=== PATIENT | female | born 1995 | race Hispanic/Latino ===

== ENCOUNTER 2021-03-11 11:39 | Outpatient (CLI) | payer MEDICAID ==
[2021-03-12 00:36] LABS: SARS-CoV-2 PCR by NAA Not Detected (NotDetected)
== END 2021-03-11 11:40 | disposition home or self-care (01) ==
LOC: CSHLAB 11:39
PROVIDERS: ATTEND Family Medicine
DX: Z01.812 Encounter for preprocedural laboratory examination (principal); Z20.822 Contact with and (suspected) exposure to COVID-19
CPT/HCPCS: U0003; U0005

== ENCOUNTER 2021-03-16 19:00 | Inpatient (IN) | payer MEDICAID, OTHER ==
[2021-03-16] MEDS ORDERED: hydrALAZINE 20 MG/ML VIAL SLOW IVP PRN (20:02)
[2021-03-16] MEDS ORDERED: Promethazine HCl 25 MG/ML VIAL IM PRN ×2 (20:02→23:29)
[2021-03-16] MEDS ORDERED: Ondansetron PF 4 MG/2 ML Vial IVP PRN ×2 (20:02→23:29)
[2021-03-16] MEDS ORDERED: Lidocaine 1% (PF) 30 ML VIAL SC PRN (20:02)
[2021-03-16] MEDS ORDERED: Lactated Ringer's 1,000 ML IV SCH (20:15)
[2021-03-16] MEDS ORDERED: NS w/ Oxytocin 30 units 500 ML IV SCH ×2 (20:15→21:15)
[2021-03-16 20:21] VITALS: BMI 35.3
[2021-03-16 20:32] LABS: Hemoglobin 11.2 g/dL (12.0-15.5); Mean Corpuscular HGB CONC 32.7 g/dL (32.0-36.0); Mean Corpuscular Hemoglobin 27.9 pg (27.0-33.0); Mean Corpuscular Volume 85.5 fl (81.6-98.3); Mean Platelet Volume 11.9 fl (7.4-10.4); Platelet Count 230 10x3/uL (150-450); RBC Distribution Width 14.5 % (11.5-14.5); Red Blood Cell (RBC) Count 4.01 10x6/uL (3.90-5.03); White Blood Cell (WBC) Count 10.4 10x3/uL (3.5-10.5)
[2021-03-16 21:11] LABS: Syphilis Antibody Nonreactive (Nonreactive); Syphilis Antibody Index 0.04 S/CO (<1.00 Non-Reactive)
[2021-03-16 21:12] LABS: Hep B Surf Ag Non-Reactive S/CO (NonReactive)
[2021-03-16 21:15] LABS: HBSAg Index 0.22 S/CO (0-0.99)
[2021-03-16] MEDS ORDERED: Fentanyl 2 mcg/Bup 0.1% Cadd 100 ML ONE (22:49)
[2021-03-16] MEDS ORDERED: Hydrocerin (Eucerin) Cream 120 gm Jar TOP PRN (23:29)
[2021-03-16] MEDS ORDERED: Naloxone HCl 0.4 mg/ml Vial IVP PRN ×2 (23:29)
[2021-03-16] MEDS ORDERED: Acetaminophen 325 MG TAB PO PRN (23:29)
[2021-03-16] MEDS ORDERED: Lactated Ringer's 500 ML IV PRN (23:29)
[2021-03-16] MEDS ORDERED: diphenhydrAMINE 50 MG/ML VIAL IVP PRN (23:29)
[2021-03-16] MEDS ORDERED: ePHEDrine Sulfate 50 MG/10 ML VIAL SLOW IVP PRN (23:29)
[2021-03-16] MEDS ORDERED: Communication Order-Pharmacy FS SCH (23:30)
[2021-03-17] MEDS: Fentanyl 2 mcg/Bupivacaine 0.1% Cassette 100 ML EPIDURAL SCH ×2 (06:47→12:42)
[2021-03-17] MEDS ORDERED: Methylergonovine 0.2 MG/ML VIAL ONE (14:39)
[2021-03-17] MEDS ORDERED: Carboprost 250 MCG/ML AMP ONE (14:39)
[2021-03-17] MEDS ORDERED: Tranexamic Acid 1,000 MG/10 ML VIAL ONE (14:39)
[2021-03-17] MEDS ORDERED: Misoprostol 200 MCG TAB ONE (14:39)
[2021-03-17] MEDS ORDERED: Ibuprofen 800 MG TAB PO SCH (14:50)
[2021-03-17] MEDS ORDERED: Boostrix 0.5 ML (Tdap) VIAL IM ONE (15:55)
[2021-03-17] MEDS ORDERED: Milk Of Magnesia 30 ML UDCUP PO PRN (15:55)
[2021-03-17] MEDS ORDERED: Bisacodyl 10 MG SUPP PR PRN (15:55)
[2021-03-17] MEDS ORDERED: Benzocaine-Menthol 82.5 ML CAN TOP PRN (15:55)
[2021-03-17 16:27] LABS: Hemoglobin 10.9 g/dL (12.0-15.5)
[2021-03-17] MEDS: Ferrous Sulfate 325 MG TAB PO SCH (17:00)
[2021-03-17] MEDS: Docusate Calcium (SURFAK) 240 MG CAP PO SCH (21:20)
[2021-03-18] MEDS: Ibuprofen 800 MG TAB PO PRN ×4 (00:16→21:51)
[2021-03-18] MEDS: Prenatal Vitamin 1 TAB PO SCH (08:29)
[2021-03-18] MEDS: Docusate Calcium (SURFAK) 240 MG CAP PO SCH ×2 (08:30→21:50)
[2021-03-18] MEDS: Ferrous Sulfate 325 MG TAB PO SCH ×2 (08:36→15:03)
[2021-03-18 22:41] VITALS: TEMP 98.1
[2021-03-19] MEDS: Ibuprofen 800 MG TAB PO PRN ×3 (06:18→20:36)
[2021-03-19] MEDS: Ferrous Sulfate 325 MG TAB PO SCH ×2 (08:03→16:34)
[2021-03-19] MEDS: Prenatal Vitamin 1 TAB PO SCH (09:03)
[2021-03-19] MEDS: Docusate Calcium (SURFAK) 240 MG CAP PO SCH ×2 (09:03→20:36)
[2021-03-19 21:16] VITALS: BP 102/54
== END 2021-03-19 21:00 | disposition home or self-care (01) | DRG 807 ==
LOC: CSHLD 19:01 → CSHPP 03-17 18:00
PROVIDERS: ADMIT Family Medicine; ATTEND Family Medicine
PROC: 10E0XZZ Delivery of Products of Conception, External Approach (ICD-10-PCS; principal; 2021-03-17)
PROC: 0KQM0ZZ Repair Perineum Muscle, Open Approach (ICD-10-PCS; 2021-03-17)
PROC: 3E033VJ Introduction of Other Hormone into Peripheral Vein, Percutaneous Approach (ICD-10-PCS; 2021-03-17)
PROC: 10907ZC Drainage of Amniotic Fluid, Therapeutic from Products of Conception, Via Natural or Artificial Opening (ICD-10-PCS; 2021-03-17)
DX: O34.211 Maternal care for low transverse scar from previous cesarean delivery (principal); Z37.0 Single live birth; Z20.822 Contact with and (suspected) exposure to COVID-19; Z3A.39 39 weeks gestation of pregnancy; O70.1 Second degree perineal laceration during delivery; O76 Abnormality in fetal heart rate and rhythm complicating labor and delivery
CPT/HCPCS: 36415; 85014; 85018; 85027; 86780; 86850; 86900; 86901; 87340; J2590

== ENCOUNTER 2025-01-26 19:00 | Inpatient (IN) | payer OTHER ==
[2025-01-27 01:39] VITALS: BMI 34.9
[2025-01-27 02:52] LABS: Hematocrit 28.5 % (34.9-44.5); Hemoglobin 9.1 g/dL (12.0-15.5); Mean Corpuscular Hemoglobin 26.4 pg (27.0-33.0); Mean Corpuscular Volume 82.6 fL (81.6-98.3); Platelet Count 209 10x3/uL (150-450); Red Blood Cell (RBC) Count 3.45 10x6/uL (3.90-5.03); White Blood Cell (WBC) Count 8.62 10x3/uL (3.5-10.5)
[2025-01-27 03:01] LABS: Glucose 86 mg/dL (70-105)
[2025-01-27] MEDS ORDERED: Lidocaine 1% (PF) 30 ML VIAL SC PRN (03:14)
[2025-01-27] MEDS ORDERED: hydrALAZINE 20 MG/ML VIAL SLOW IVP PRN ×2 (03:14→13:12)
[2025-01-27] MEDS ORDERED: Ondansetron PF 4 MG/2 ML Vial IVP PRN ×4 (03:14→14:06)
[2025-01-27] MEDS ORDERED: Carboprost 250 MCG/ML AMP IM PRN (03:15)
[2025-01-27] MEDS ORDERED: Tranexamic Acid 1,000 MG/10 ML VIAL IVP PRN (03:15)
[2025-01-27] MEDS ORDERED: Oxytocin 30 units/NS 500 ML 500 ML IV SCH (03:15)
[2025-01-27] MEDS ORDERED: Methylergonovine 0.2 MG/ML VIAL IM PRN (03:15)
[2025-01-27] MEDS ORDERED: Acetaminophen 500 MG TAB PO PRN (03:15)
[2025-01-27] MEDS ORDERED: Ibuprofen 800 MG TAB PO PRN (03:15)
[2025-01-27] MEDS ORDERED: Diphenoxylate HCl/Atropine Tablet PO PRN ×2 (03:15)
[2025-01-27 03:25] LABS: Syphilis Antibody Index 0.05 S/CO (<1.00 Non-Reactive)
[2025-01-27 03:27] LABS: Hep B Surf Ag - L&D Non-Reactive S/CO (NonReactive)
[2025-01-27] MEDS: Oxytocin 30 units/NS 500 ML 500 ML IV SCH (04:03)
[2025-01-27] MEDS ORDERED: Acetaminophen 325 MG TAB PO PRN ×2 (07:25→13:12)
[2025-01-27] MEDS ORDERED: diphenhydrAMINE 50 MG/ML VIAL IVP PRN (07:25)
[2025-01-27] MEDS ORDERED: Communication Order-Pharmacy FS SCH ×2 (07:30→14:15)
[2025-01-27] MEDS: fentaNYL 2 mcg/Ropivacaine 0.2% Epidural 100 ML CADD EPIDURAL SCH (07:40)
[2025-01-27] MEDS ORDERED: Bupivacaine/Epinephrine 0.25% 30 ML VIAL ONE (12:00)
[2025-01-27] MEDS ORDERED: Bicitra 30 ML UDCUP PO PRN (12:03)
[2025-01-27] MEDS ORDERED: Famotidine/PF 20 mg/2ml Vial SLOW IVP PRN (12:03)
[2025-01-27] MEDS ORDERED: Azithromycin 500 MG in Sodium Chloride 0.9% 250 ML 250 ML IVPB SCH (12:15)
[2025-01-27 12:31] LABS: Analyzer IN Cardio CS NICU; RapidComm Collect By OR Nurse; pH (Cord, venous) 7.311 (7.250-7.350)
[2025-01-27] MEDS ORDERED: Boostrix 0.5 ML (Tdap) VIAL (>/=7 yrs of age) IM ONE (13:12)
[2025-01-27] MEDS ORDERED: Lanolin Ointment 7 GM TUBE TOP PRN (13:12)
[2025-01-27] MEDS ORDERED: Simethicone Chewable 80 MG TAB PO PRN (13:12)
[2025-01-27] MEDS ORDERED: Bisacodyl 10 MG SUPP PR PRN (13:12)
[2025-01-27 13:26] LABS: Platelet Count 169 10x3/uL (150-450)
[2025-01-27 13:53] LABS: D-Dimer Test Greater than 35.20 mcg/mL (0.19-0.50); Fibrinogen 196 mg/dL (220-504); INR-International Normal Ratio 1.0; PTT 34.8 sec (22.0-33.0); Prothrombin Time 11.3 sec (9.5-12.1)
[2025-01-27] MEDS ORDERED: Meperidine HCl/PF 25 MG (1 mL) VIAL SLOW IVP PRN (14:06)
[2025-01-27] MEDS: Ketorolac Tromethamine 30 MG (1 mL) VIAL IVP PRN (15:06)
[2025-01-27] MEDS: fentaNYL/Ropivacaine Epidural 100 ML ONE (16:15)
[2025-01-27] MEDS: Azithromycin 500 MG VIAL ONE (16:15)
[2025-01-27] MEDS: PROPOFOL 20 ML ONE (16:16)
[2025-01-27] MEDS: Lidocaine 2% MPF 10 ML AMP (For Epidural Use) ONE ×2 (16:16)
[2025-01-27] MEDS: Tranexamic Acid 1,000 MG/10 ML VIAL ONE ×2 (16:16→16:17)
[2025-01-27] MEDS: CEFAZOLIN 2 GM VIAL ONE (16:16)
[2025-01-27] MEDS: Dexamethasone 10 MG/ML VIAL ONE (16:16)
[2025-01-27] MEDS: Ondansetron PF 4 MG/2 ML Vial ONE (16:17)
[2025-01-27] MEDS: Oxytocin 10 UNITS/ML VIAL ONE (16:17)
[2025-01-27] MEDS: Bupivacaine 0.25% HCL 30 ML VIAL ONE (16:17)
[2025-01-27] MEDS: Ibuprofen 800 MG TAB PO SCH (16:18)
[2025-01-27] MEDS: Ferrous Sulfate 325 MG TAB PO SCH (21:24)
[2025-01-28 04:24] LABS: Hematocrit 21.6 % (34.9-44.5); Hemoglobin 6.9 g/dL (12.0-15.5); Mean Corpuscular Hemoglobin 26.6 pg (27.0-33.0); Mean Corpuscular Volume 83.4 fL (81.6-98.3); Platelet Count 134 10x3/uL (150-450); Red Blood Cell (RBC) Count 2.59 10x6/uL (3.90-5.03); White Blood Cell (WBC) Count 15.32 10x3/uL (3.5-10.5)
[2025-01-28] MEDS ORDERED: HYDROcodone/Acetaminophen 5/325 mg Tablet PO PRN ×2 (07:26)
[2025-01-28] MEDS: Acetaminophen 325 MG TAB PO SCH (08:24)
[2025-01-28] MEDS: diphenhydrAMINE 50 MG/ML VIAL IVP PRN (12:13)
[2025-01-28] MEDS: HYDROcodone/Acetaminophen 5/325 mg Tablet PO PRN (14:02)
[2025-01-28 14:08] LABS: Hematocrit 22.8 % (34.9-44.5); Hemoglobin 7.3 g/dL (12.0-15.5)
[2025-01-28] MEDS: Measles/Mumps/Rubella 10 MCG/0.5 ML VIAL SC ONE (20:32)
[2025-01-28] MEDS: Ibuprofen 800 MG TAB PO SCH (20:57)
[2025-01-29 07:19] LABS: Hematocrit 22.5 % (34.9-44.5); Hemoglobin 7.4 g/dL (12.0-15.5)
[2025-01-29 12:40] VITALS: BP 99/60; TEMP 98.9
== END 2025-01-29 14:40 | disposition home or self-care (01) | DRG 787 ==
LOC: CSHLD 01-27 01:03 → CSHPP 01-27 15:43
PROVIDERS: ADMIT Obstetrics & Gynecology; ATTEND Obstetrics & Gynecology
PROC: 10D00Z1 Extraction of Products of Conception, Low, Open Approach (ICD-10-PCS; principal; 2025-01-27)
PROC: 10H07YZ Insertion of Other Device into Products of Conception, Via Natural or Artificial Opening (ICD-10-PCS; 2025-01-27)
PROC: 10H073Z Insertion of Monitoring Electrode into Products of Conception, Via Natural or Artificial Opening (ICD-10-PCS; 2025-01-27)
PROC: 30233N1 Transfusion of Nonautologous Red Blood Cells into Peripheral Vein, Percutaneous Approach (ICD-10-PCS; 2025-01-27)
DX: O24.424 Gestational diabetes mellitus in childbirth, insulin controlled (principal); D62 Acute posthemorrhagic anemia; O72.1 Other immediate postpartum hemorrhage; O48.0 Post-term pregnancy; Z3A.40 40 weeks gestation of pregnancy; Z37.0 Single live birth; O34.211 Maternal care for low transverse scar from previous cesarean delivery; O76 Abnormality in fetal heart rate and rhythm complicating labor and delivery
CPT/HCPCS: 36415; 36416; 36430; 51702; 82805; 82947; 82951; 85014; 85018; 85027; 85049; 85300; 85362; 85384; 85610; 85730; 86780; 86850; 86900; 86901; 87340; J0665; J1100; J1200; J1885; J2270; J2274; J2405; J2550; J2590; J2704; J7120; P9016